=== PATIENT | male | born 1940 | race Caucasian/White ===

== ENCOUNTER 2017-11-26 06:56 | Day surgery (SDC) | payer MEDICARE, BC ==
[~2017-11-26] VITALS: Ht 172.7 cm; Wt 99.0 kg
[2017-11-26] VITALS (13 sets, daily range): BP systolic 105–162; BP diastolic 60–98
[2017-11-26] MEDS ORDERED: normal saline 1000ml 1,000 ML IV SCH ×2 (07:40→10:30)
[2017-11-26] MEDS ORDERED: diphenhydrAMINE 25mg capsule PO PRN (07:40)
[2017-11-26] MEDS ORDERED: nitroGLYCERIN 0.4mg SUBLingual tab SL PRN (07:40)
[2017-11-26] MEDS ORDERED: LORazepam 0.5 MG tablet PO PRN (07:40)
[2017-11-26] MEDS ORDERED: FAMO20TA8 PO (08:03)
[2017-11-26] MEDS ORDERED: METO-539 PO (08:03)
[2017-11-26] MEDS ORDERED: MORP30TA60 PO (08:03)
[2017-11-26] MEDS ORDERED: HYDR-565 PO (08:03)
[2017-11-26] MEDS ORDERED: IMIP50TA7 PO (08:03)
[2017-11-26] MEDS ORDERED: ASPI81TA52 PO (08:03)
[2017-11-26] MEDS ORDERED: TRAZ-146 PO (08:03)
[2017-11-26] MEDS ORDERED: ATOR40TA PO (08:03)
[2017-11-26] MEDS ORDERED: DULO-31 PO (08:03)
[2017-11-26] MEDS ORDERED: IRBE150T51 PO (08:03)
[2017-11-26 08:28] LABS: BASOPHILS % (AUTO) 0.8 % (0-1); EOSINOPHILS # (AUTO) 0.4 X10'3 (0-0.9); EOSINOPHILS % (AUTO) 9.3 % (0-6); HEMATOCRIT 38.3 % (42.0-52.0); HEMOGLOBIN 12.8 g/dl (14.0-17.9); LYMPHOCYTES # (AUTO) 1.7 X10'3 (1.1-4.8); MEAN CORPUSCULAR HEMOGLOBIN 30.2 PG (27.0-31.0); MEAN CORPUSCULAR HGB CONC 33.5 % (33.0-36.5); MEAN CORPUSCULAR VOLUME 90.3 FL (78-98); MEAN PLATELET VOLUME 8.2 FL (7.4-10.4); MONOCYTES # (AUTO) 0.4 X10'3 (0-0.9); MONOCYTES % (AUTO) 9.7 % (2-12); NEUTROPHILS # (AUTO) 1.8 X10'3 (1.8-7.7); NEUTROPHILS % (AUTO) 42.2 % (42-75); PLATELET COUNT 193 X10'3 (140-440); RED BLOOD COUNT 4.24 X10'6 (4.70-6.10); RED CELL DISTRIBUTION WIDTH 15.7 % (11.5-14.5); WHITE BLOOD COUNT 4.4 X10'3 (4.5-11.0)
[2017-11-26 08:38] LABS: ALBUMIN 3.5 G/DL (3.4-5.0); ANION GAP 8 (8-16); BLOOD UREA NITROGEN 18 MG/DL (7-18); BUN/CREATININE RATIO 15.8 (5.4-32.0); CALCIUM 8.7 MG/DL (8.5-10.1); CHLORIDE 104 MMOL/L (99-107); CREATININE 1.14 MG/DL (0.60-1.10); GLUCOSE 96 MG/DL (70-104); POTASSIUM 3.8 MMOL/L (3.5-5.1); SODIUM 141 MMOL/L (135-145); TOTAL CARBON DIOXIDE 29.2 MMOL/L (24-32); eGFR 63 ML/MIN
[2017-11-26 08:40] LABS: PARTIAL THROMBOPLASTIN TIME 26 SECONDS (22-32); PROTHROMBIN TIME 10.7 SECONDS (9.0-12.0)
[2017-11-26] MEDS ORDERED: midazolam 2 mg/2 ml injection ONE (09:00)
[2017-11-26] MEDS ORDERED: fentaNYL/PF 50MCG/1 ML 2ML syringe ONE (09:00)
[2017-11-26] MEDS ORDERED: iohexol 350MG/ML 100ml bottle IV ONE (09:00)
[2017-11-26] MEDS ORDERED: iohexol 350 MG/ML 50ML vial IV ONE ×2 (09:00→09:53)
[2017-11-26] MEDS ORDERED: LIDOcaine 1% w/EPI 1:100,000 30ml vial (MDV) ONE (09:00)
[2017-11-26] MEDS ORDERED: heparin 1,000 UNITS/NS 500ml 500 ML ONE (09:00)
[2017-11-26] MEDS ORDERED: OXAZEpam 15mg capsule PO PRN (10:30)
[2017-11-26] MEDS ORDERED: HYDROcodone/acetaminophen 10/325mg tab PO PRN (10:30)
[2017-11-26] MEDS ORDERED: proCHLORperazine 10 MG/2 ml inj IV PRN (10:30)
[2017-11-26] MEDS ORDERED: ondansetron/PF 4mg/2ml inj IV PRN (10:30)
[2017-11-26] MEDS ORDERED: HYDROcodone/acetaminophen 5mg/325mg tablet PO PRN (10:30)
== END 2017-11-26 16:50 | disposition home or self-care (01) ==
LOC: SSTAY O 06:56
PROVIDERS: ATTEND Internal Medicine Cardiovascular Disease
DX: I25.810 Atherosclerosis of coronary artery bypass graft(s) without angina pectoris (principal); I25.2 Old myocardial infarction; K21.9 Gastro-esophageal reflux disease without esophagitis; M19.90 Unspecified osteoarthritis, unspecified site; J44.9 Chronic obstructive pulmonary disease, unspecified; Z79.01 Long term (current) use of anticoagulants; Z79.82 Long term (current) use of aspirin; Z79.891 Long term (current) use of opiate analgesic; Z88.0 Allergy status to penicillin; Z88.2 Allergy status to sulfonamides; Z96.653 Presence of artificial knee joint, bilateral; Z96.642 Presence of left artificial hip joint; Z90.79 Acquired absence of other genital organ(s); Z85.46 Personal history of malignant neoplasm of prostate; Z86.74 Personal history of sudden cardiac arrest; Z95.1 Presence of aortocoronary bypass graft; Z87.891 Personal history of nicotine dependence; Z79.899 Other long term (current) drug therapy; Z88.8 Allergy status to other drugs, medicaments and biological substances; Z98.890 Other specified postprocedural states
CPT/HCPCS: 36415; 71046; 80048; 85025; 85610; 85730; 93005; 93459; 99152; 99153; A6257; C1760; C1769; J1644; J2250; J3010; J3490; J7030; Q0163; Q9967; A4620